=== PATIENT | male | born 1945 | race Caucasian/White ===

== ENCOUNTER 2020-07-08 09:10 | Observation (INO) ==
[~2020-07-08 09:10] MED LIST: Buffered Lidocaine 1% SYRIN 1 ml INTRADERM ONE
[2020-07-08] MEDS ORDERED: Buffered Lidocaine 1% SYRIN 1 ml INTRADERM ONE (09:31)
[2020-07-08] MEDS ORDERED: cefTRIAXone 2 GM ADDV.VIAL ONE (09:31)
[2020-07-08] MEDS ORDERED: Propofol 10 MG/ML 20 ML BTL ONE (10:21)
[2020-07-08] MEDS ORDERED: Lidocaine 2% PF 5 ML VIAL ONE (10:21)
[2020-07-08] MEDS ORDERED: fentaNYL 100 mcg/2 ml 50 MCG/ML VIAL ONE ×2 (10:21→12:29)
[2020-07-08] MEDS: NS 0.9% 1000 ml BAG 1,000 ML IV SCH ×3 (10:29→22:40)
[2020-07-08] MEDS ORDERED: Ondansetron 4 mg VIAL 2 MG/ML 2 ml VIAL ONE (12:01)
[2020-07-08] MEDS ORDERED: Dexamethasone IV 4 MG/ML VIAL 1 ml VIAL ONE (12:01)
[2020-07-08] MEDS ORDERED: EPHEDrine (Pressors) 50 MG/ML VIAL ONE (12:05)
[2020-07-08] MEDS ORDERED: fentaNYL 100 mcg/2 ml 50 MCG/ML VIAL IV PRN (13:51)
[2020-07-08] MEDS ORDERED: DiMENhydriNATE IV 50 mg/ml 1 ml VIAL IV PUSH PRN (13:51)
[2020-07-08] MEDS ORDERED: Naloxone 0.4 mg VIAL 0.4 mg/ml 1 ml VIAL IV PRN (13:51)
[2020-07-08] MEDS ORDERED: Lidocaine 2% JELLY 6 ML TOPICAL PRN (15:16)
[2020-07-08] MEDS: oxyCODONE/Acetamin 5/325 mg TAB PO PRN ×2 (16:30→20:28)
[2020-07-09] MEDS: NS 0.9% 1000 ml BAG 1,000 ML IV SCH (05:19)
[2020-07-09] MEDS: oxyCODONE/Acetamin 5/325 mg TAB PO PRN (05:21)
[2020-07-09 08:03] VITALS: BP 123/77
== END 2020-07-09 11:00 | disposition home or self-care (01) ==
LOC: OR 09:10 → SSU 09:10
PROVIDERS: ADMIT Urology; ATTEND Urology